=== PATIENT | female | born 1945 | race African-American/Black ===

== ENCOUNTER 2020-08-28 17:06 | Emergency (ER) | payer OTHER ==
[2020-08-28 18:04] VITALS: BMI 30.3
[2020-08-28 19:13] LABS: BASO % 0.3 % (0-2.0); EOS % 0.7 % (0-4.5); HEMATOCRIT 26.6 % (32.4-45.2); HEMOGLOBIN 8.8 GM/dL (10.7-15.3); LYMPH % 20.9 % (8-40); MCH 27.5 pg (25.7-33.7); MCHC 33.2 g/dl (32.0-36.0); MEAN CELL VOLUME 82.8 fl (80-96); MEAN PLT VOLUME 7.9 fl (7.5-11.1); NEUT % 68.1 % (42.8-82.8); PLATELET COUNT 407 K/MM3 (134-434); RBC 3.21 M/mm3 (3.60-5.2); RDW 16.9 % (11.6-15.6); WHITE BLOOD COUNT 5.7 K/mm3 (4.0-10.0)
[2020-08-28 19:24] LABS: PH,URINE 5.5 (5.0-8.0); URINE APPEARANCE CLEAR; URINE BILIRUBIN NEGATIVE (NEGATIVE); URINE COLOR YELLOW; URINE GLUCOSE (UA) NEGATIVE (NEGATIVE); URINE KETONE TRACE (NEGATIVE); URINE LEUK ESTERASE NEGATIVE (NEGATIVE); URINE NITRITE NEGATIVE (NEGATIVE); URINE PROTEIN NEGATIVE (NEGATIVE); URINE UROBILINOGEN 0.2 mg/dL (0.2-1.0)
[2020-08-28 19:30] LABS: POTASSIUM 4.8 mmol/L (3.5-5.1)
[2020-08-28 19:35] LABS: ALBUMIN 3.4 g/dl (3.4-5.0); BLOOD UREA NITROGEN 25.6 mg/dL (7-18); CALCIUM 9.3 mg/dL (8.5-10.1)
[2020-08-28 19:39] LABS: CREATININE 1.8 mg/dL (0.55-1.3)
[2020-08-28 19:40] LABS: BILIRUBIN,TOTAL 0.3 mg/dL (0.2-1); TOT PROT 7.4 g/dl (6.4-8.2)
[2020-08-28] MEDS ORDERED: BAMLANIVIMAB 700 MG, ETESEVIMAB 1,400 MG in SODIUM CHLORIDE 250 ML IVPB ONE (21:30)
[2020-08-28 23:29] VITALS: BP 146/58; PULSE 79; TEMP 98.8
== END 2020-08-28 23:33 | disposition home or self-care (01) ==
LOC: JER 17:06 → JCOVINFU 17:06 → JER 23:33
DX: U07.1 COVID-19 (principal)
CPT/HCPCS: 36415; 80053; 81003; 85025; 87086; 96365; 99284-25; M0239; Q0239; Q0245